=== PATIENT | male | born 1940 | race Caucasian/White ===

== ENCOUNTER 2016-08-18 13:37 | Emergency (ER) | payer MEDICARE ==
[~2016-08-18] VITALS: Ht 193 cm; Wt 93.9 kg
[~2016-08-18 13:37] MED LIST: ALTACE10 MG PO; LOPRESSOR100 MG PO; NEXIUM40 MG PO; ZOCOR20 MG PO
== END 2016-08-18 15:45 | disposition short-term general hospital (02) ==
LOC: ER 13:37
DX: J10.00 Influenza due to other identified influenza virus with unspecified type of pneumonia (principal); Z79.899 Other long term (current) drug therapy; Z88.5 Allergy status to narcotic agent; Z88.8 Allergy status to other drugs, medicaments and biological substances
CPT/HCPCS: J0696